=== PATIENT | male | born 1995 | race Caucasian/White ===

== ENCOUNTER → 2019-02-20 | Outpatient (CLI) | payer OTHER | LOC: M OUTALCOH 08:23 | PROVIDERS: ATTEND Psychiatry & Neurology Psychiatry | DX: Z13.9 Encounter for screening, unspecified (principal); F10.20 Alcohol dependence, uncomplicated ==

== ENCOUNTER 2019-03-16 10:00 | Outpatient (RCR) | payer OTHER | END 2019-03-21 | LOC: M OUTALCOH 10:00 | PROVIDERS: ATTEND Psychiatry & Neurology Psychiatry | DX: F10.20 Alcohol dependence, uncomplicated (principal); Z72.0 Tobacco use ==

== ENCOUNTER 2019-04-20 10:00 | Outpatient (RCR) | payer OTHER, SELFPAY | END 2019-04-21 | LOC: M OUTALCOH 10:00 | PROVIDERS: ATTEND Psychiatry & Neurology Psychiatry | DX: F10.20 Alcohol dependence, uncomplicated (principal); Z72.0 Tobacco use ==

== ENCOUNTER 2019-05-17 16:00 | Outpatient (RCR) | payer SELFPAY | END 2019-05-20 | LOC: M OUTALCOH 16:00 | PROVIDERS: ATTEND Psychiatry & Neurology Addiction Medicine | DX: F10.20 Alcohol dependence, uncomplicated (principal); Z72.0 Tobacco use ==

== ENCOUNTER 2019-06-14 16:00 | Outpatient (RCR) | payer BC, SELFPAY | END 2019-06-20 | LOC: M OUTALCOH 16:00 | PROVIDERS: ATTEND Psychiatry & Neurology Addiction Medicine | DX: F10.20 Alcohol dependence, uncomplicated (principal); Z72.0 Tobacco use ==

== ENCOUNTER 2019-07-17 15:08 | Outpatient (RCR) | payer BC, SELFPAY | END 2019-07-20 | LOC: M OUTALCOH 15:08 | PROVIDERS: ATTEND Psychiatry & Neurology Addiction Medicine | DX: F10.20 Alcohol dependence, uncomplicated (principal); Z72.0 Tobacco use ==

== ENCOUNTER 2019-08-16 14:13 | Outpatient (RCR) | payer SELFPAY | END 2019-08-20 | LOC: M OUTALCOH 14:13 | PROVIDERS: ATTEND Psychiatry & Neurology Addiction Medicine | DX: F10.20 Alcohol dependence, uncomplicated (principal); Z72.0 Tobacco use ==

== ENCOUNTER → 2019-09-08 | Outpatient (CLI) | payer SELFPAY | LOC: M PLALAB 13:45 | PROVIDERS: ATTEND Psychiatry & Neurology Addiction Medicine | DX: F10.99 Alcohol use, unspecified with unspecified alcohol-induced disorder (principal) ==

== ENCOUNTER 2019-09-13 13:01 | Outpatient (RCR) | payer SELFPAY | END 2019-09-19 | LOC: M OUTALCOH 13:01 | PROVIDERS: ATTEND Psychiatry & Neurology Addiction Medicine | DX: F10.20 Alcohol dependence, uncomplicated (principal); Z72.0 Tobacco use ==

== ENCOUNTER 2019-10-11 15:00 | Outpatient (RCR) | payer SELFPAY | END 2019-10-20 | LOC: M OUTALCOH 15:00 | PROVIDERS: ATTEND Psychiatry & Neurology Addiction Medicine | DX: F10.20 Alcohol dependence, uncomplicated (principal); Z72.0 Tobacco use ==

== ENCOUNTER 2019-11-07 15:00 | Outpatient (RCR) | payer SELFPAY | END 2019-11-20 | LOC: M OUTALCOH 15:00 | PROVIDERS: ATTEND Psychiatry & Neurology Addiction Medicine | DX: F10.20 Alcohol dependence, uncomplicated (principal); Z72.0 Tobacco use ==

== ENCOUNTER → 2019-12-20 | Outpatient (RCR) | payer SELFPAY | LOC: M OUTALCOH 11-22 14:29 | PROVIDERS: ATTEND Psychiatry & Neurology Addiction Medicine | DX: F10.20 Alcohol dependence, uncomplicated (principal); Z72.0 Tobacco use ==

== ENCOUNTER 2020-01-24 13:30 | Outpatient (RCR) | payer SELFPAY | END 2020-02-19 | LOC: M OUTALCOH 13:30 | PROVIDERS: ATTEND Psychiatry & Neurology Addiction Medicine | DX: F10.20 Alcohol dependence, uncomplicated (principal); Z72.0 Tobacco use ==

== ENCOUNTER 2020-03-06 15:58 | Outpatient (RCR) | payer SELFPAY | END 2020-03-21 | LOC: M OUTALCOH 15:58 | PROVIDERS: ATTEND Psychiatry & Neurology Addiction Medicine | DX: F10.20 Alcohol dependence, uncomplicated (principal); Z72.0 Tobacco use ==

== ENCOUNTER 2020-04-16 15:24 | Outpatient (RCR) | payer SELFPAY | END 2020-04-21 | LOC: M OUTALCOH 15:24 | PROVIDERS: ATTEND Psychiatry & Neurology Psychiatry | DX: F10.20 Alcohol dependence, uncomplicated (principal); Z72.0 Tobacco use ==

== ENCOUNTER 2023-02-17 15:16 | Emergency (ER) | payer BC, SELFPAY ==
[~2023-02-17] VITALS: Ht 188 cm; Wt 91.3 kg
[2023-02-17] MEDS ORDERED: IBUPROFEN 600MG TAB PO ONE (19:55)
[2023-02-17] MEDS ORDERED: methocarbamoL 500 MG TAB PO ONE (19:55)
[2023-02-17] MEDS ORDERED: METH-1164 PO (20:50)
[2023-02-17] MEDS ORDERED: IBUP-1022 PO (20:50)
[2023-02-17 21:00] VITALS: BP 133/85; TEMP 98.4; O2SAT 100
== END 2023-02-17 21:19 | disposition home or self-care (01) ==
LOC: M ED 15:16
DX: S13.4XXA Sprain of ligaments of cervical spine, initial encounter (principal); S46.011A Strain of muscle(s) and tendon(s) of the rotator cuff of right shoulder, initial encounter; Y99.0 Civilian activity done for income or pay; Y92.9 Unspecified place or not applicable